=== PATIENT | male | born 1980 | race Caucasian/White ===

== ENCOUNTER 2020-08-13 02:12 | Emergency (ER) | payer SELFPAY ==
[~2020-08-13] VITALS: Ht 195.6 cm; Wt 93.0 kg
[~2020-08-13 02:12] MED LIST: CLINDAMYCIN HC300 MG PO; IBUPROFEN400 MG PO; NORCO 5-325 TA1 EACH PO
[2020-08-13] MEDS ORDERED: DOXYCYCLINE HY100 MG PO (03:06)
== END 2020-08-13 03:38 | disposition home or self-care (01) ==
LOC: ED 02:12
DX: N34.2 Other urethritis (principal); F17.200 Nicotine dependence, unspecified, uncomplicated
CPT/HCPCS: 81001; 87088; 87491; 87591; 96372; 99283; J0696

== ENCOUNTER 2022-02-11 13:03 | Emergency (ER) | payer OTHER ==
[~2022-02-11] VITALS: Ht 195.6 cm; Wt 99.8 kg
[~2022-02-11 13:03] MED LIST changes: +DOXYCYCLINE HY100 MG PO
== END 2022-02-11 15:26 | disposition home or self-care (01) ==
LOC: ED 13:03
DX: S20.211A Contusion of right front wall of thorax, initial encounter (principal); V59.40XA Driver of pick-up truck or van injured in collision with unspecified motor vehicles in traffic accident, initial encounter; F17.200 Nicotine dependence, unspecified, uncomplicated
CPT/HCPCS: 36415; 71046; 80053; 85025; 99284-25; A9270